=== PATIENT | male | born 1980 | race African-American/Black ===

== ENCOUNTER 2024-03-04 18:40 | Emergency (ER) | payer MEDICAID, OTHER ==
[~2024-03-04] VITALS: Ht 177.8 cm; Wt 77.0 kg
[2024-03-04 20:03] LABS: Basophils # (auto) 0 10 ^3/uL (0-0.2); Basophils % (auto) 0.8 % (0.0-2.0); Eosinophils # (auto) 0 10 ^3/uL (0-0.8); Hematocrit 38.5 % (41.0-53.0); Hemoglobin 12.9 g/dL (13.5-17.5); Lymphocytes # (auto) 1.3 10 ^3/uL (0.4-5.4); Lymphocytes % (auto) 45.1 % (10.0-50.0); Mean Corpuscular Hemoglobin 27.5 pg (28.0-32.0); Mean Corpuscular Hgb Conc. 33.6 g/dL (32.0-36.0); Mean Corpuscular Volume 81.8 fL (80.0-100.0); Monocytes # (auto) 0.2 10 ^3/uL (0-1.3); Monocytes % (auto) 7.1 % (0.0-12.0); Neutrophils # (auto) 1.3 10 ^3/uL (1.6-8.6); Nucleated Red Blood Cells % 0.7 %; Red Cell Distribution Width 14.3 % (11.8-14.3); White Blood Cell 2.9 10^3/uL (4.4-10.8)
[2024-03-04 20:08] LABS: Alanine Aminotransferase 26 U/L (7-40); Albumin 3.9 g/dL (3.2-4.8); Alkaline Phosphatase 90 U/L (46-116); Aspartate Aminotransferase 28 U/L (13-40); BUN/Creatinine Ratio 8.9 (10.0-20.0); Bilirubin, Total 0.7 mg/dL (0.2-1.0); Blood Urea Nitrogen 14 mg/dL (9-23); Calcium 9.1 mg/dL (8.7-10.4); Chloride 102 mmol/L (98-107); Glucose 119 mg/dL (74-106); Potassium 3.3 mmol/L (3.5-5.1); Sodium 136 mmol/L (136-145); Total Protein 6.6 g/dL (5.7-8.2)
[2024-03-04 20:23] LABS: Anion Gap 10 (5-15); Carbon Dioxide 24 mmol/L (20-30)
[2024-03-04 20:28] LABS: INR 1.03 (0.9-1.15); Partial Thromboplastin Time 29.4 SEC (24.5-34.5); Prothrombin Time 10.9 sec (9.3-11.8)
[2024-03-04] MEDS: ACETAMINOPHEN 325 MG TAB PO ONE (20:55)
[2024-03-04] MEDS: cloNIDine HCL 0.1 MG TAB PO ONE (20:55)
[2024-03-04 21:23] LABS: COVID19 ANTIGEN SOFIA FIA NEGATIVE (NEGATIVE)
[2024-03-04] MEDS ORDERED: METH4PAK PO (21:27)
[2024-03-04] MEDS ORDERED: AZIT1POW PO (21:27)
[2024-03-04 22:18] VITALS: BP 150/109; PULSE 92; RESP 18; TEMP 98.2; O2SAT 100
== END 2024-03-04 22:17 | disposition home or self-care (01) ==
LOC: ER 18:40
DX: J20.9 Acute bronchitis, unspecified (principal); I10 Essential (primary) hypertension; F17.210 Nicotine dependence, cigarettes, uncomplicated; F12.10 Cannabis abuse, uncomplicated; Z20.822 Contact with and (suspected) exposure to COVID-19
CPT/HCPCS: 36415; 71045; 80053; 83880; 84484; 85025; 85610; 85730; 87426; 93005